=== PATIENT | male | born 1985 | race Caucasian/White ===

== ENCOUNTER 2019-01-15 01:19 | Emergency (ER) | payer BC ==
[~2019-01-15] VITALS: Ht 180.3 cm; Wt 129.3 kg
--- NOTE | 2019-01-15 01:30 | ED.ADGEN ---
Past History Past Medical History: Anxiety Drug Use: Marijuana Adult General Chief Complaint Chief Complaint ".. My entire Lt side of body is numb... My head all the way down.. ".. " It started at about 9 pm.. I did smoke some marijuana at 8:15.. It felt like I was having a panic attack... I am under stress.. going through a divorce..."..".. I got three kids.. 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 who presents with above hx and complaints of entire Lt side weakness and numbness. Patient states his vision on the left side is cloudy. Pt. States everything on Lt side head and body is numb and weak since 2100 hrs after smoking some marijuana. Patient was however able to walk to get into his friend's car. In October to walk from the car to the emergency room. Patient denies previous history of TIA or strokes. Does have a history of anxiety disorder. Patient states he is under extreme amount of stress because he is going through a divorce. Patient denies any illicit drug use other than marijuana. Patient does smoke. No recent travel or specific ill contacts. No history of trauma. No history of HIV or immunosuppression. Patient is right- hand dominant. Review of Systems Review of Systems Constitutional: Denies fever or chills [] Eyes: Denies change in visual acuity, redness, or eye pain [] Decreased vision Lt eye HENT: Denies nasal congestion or sore throat [] Respiratory: Denies cough or shortness of breath [] Cardiovascular: No additional information not addressed in HPI [] GI: Denies abdominal pain, nausea, vomiting, bloody stools or diarrhea [] : Denies dysuria or hematuria [] Musculoskeletal: Denies back pain or joint pain [] Integument: Denies rash or skin lesions [] Neurologic: Denies headache, focal weakness or sensory changes []Complaints of complete Lt side weakness and numbness. Endocrine: Denies polyuria or polydipsia [] All other systems were reviewed and found to be within normal limits, except as documented in this note. Family History Family History Noncontributory Current Medications Current Medications Current Medications Medications (Trade) Dose Ordered Sig/Haley Start Time Stop Time Status Last Admin Dose Admin Aspirin (Dane Aspirin) 325 mg STK-MED ONCE 01/15/19 02:50 01/15/19 04:24 DC Lactated Ringer's 1,000 ml @ 1,000 mls/hr 1X ONCE 01/15/19 03:30 01/15/19 04:24 DC Allergies Allergies Allergies Coded Allergies Type Severity Reaction Last Updated Verified oxycodone Allergy Unknown Itching 01/15/19 Yes Physical Exam Physical Exam Constitutional: , in moderately acute emotional distress, non-toxic appearance. [] HENT: Normocephalic, atraumatic, bilateral external ears normal, oropharynx moist, no oral exudates, nose normal. []Ear studs. Eyes: PERRLA, EOMI, conjunctiva mild injection, consensual light reflex, no discharge. [] Glasses. Neck: Normal range of motion, no tenderness, supple, no stridor. [] Cardiovascular:Heart rate regular rhythm, no murmur [] Lungs & Thorax: Bilateral breath sounds equal at apexes and a few scattered wheezes on auscultation [] Abdomen: Bowel sounds normal, soft, no tenderness, no masses, no pulsatile masses. [] Obese. Skin: Warm, dry, no erythema, no rash. [] Tattoo's. Back: No tenderness, no CVA tenderness. [] Extremities: No tenderness, no cyanosis, no clubbing, ROM intact, no edema. [] Neurologic: Alert and oriented X 3, complains of weakness and numbness on his entire left side of body , DTRs +2 patella and brachial. Distal vib. 128 intact. Rt. hand dominate. Psychologic: Affect anxious, judgement normal, mood normal. [] Current Patient Data Lab Results Laboratory Tests Test 01/15/19 01:25 01/15/19 01:50 Glucose (Fingerstick) 134 mg/dL (70-99) H White Blood Count 11.2 x10^3/uL (4.0-11.0) H Red Blood Count 4.99 x10^6/uL (4.30-5.70) Hemoglobin 16.0 g/dL (13.0-17.5) Hematocrit 47.3 % (39.0-53.0) Mean Corpuscular Volume 95 fL (79-100) Mean Corpuscular Hemoglobin 32 pg (25-35) Mean Corpuscular Hemoglobin Concent 34 g/dL (31-37) Red Cell Distribution Width 13.4 % (11.5-14.5) Platelet Count 325 x10^3/uL (140-400) Neutrophils (%) (Auto) 74 % (31-73) H Lymphocytes (%) (Auto) 19 % (24-48) L Monocytes (%) (Auto) 5 % (0-9) Eosinophils (%) (Auto) 1 % (0-3) Basophils (%) (Auto) 0 % (0-3) Neutrophils # (Auto) 8.3 x10^3uL (1.8-7.7) H Lymphocytes # (Auto) 2.2 x10^3/uL (1.0-4.8) Monocytes # (Auto) 0.6 x10^3/uL (0.0-1.1) Eosinophils # (Auto) 0.1 x10^3/uL (0.0-0.7) Basophils # (Auto) 0.0 x10^3/uL (0.0-0.2) Erythrocyte Sedimentation Rate 2 (0-15) Prothrombin Time 9.9 SEC (9.4-11.4) Prothrombin Time INR 1.0 (0.9-1.1) PTT 29 SEC (23-33) Sodium Level 142 mmol/L (136-145) Potassium Level 3.8 mmol/L (3.5-5.1) Chloride Level 104 mmol/L (98-107) Carbon Dioxide Level 30 mmol/L (21-32) Anion Gap 8 (6-14) Blood Urea Nitrogen 14 mg/dL (8-26) Creatinine 1.4 mg/dL (0.7-1.3) H Estimated GFR (Cockcroft-Gault) 58.4 Glucose Level 141 mg/dL (70-99) H Calcium Level 9.5 mg/dL (8.5-10.1) Total Bilirubin 0.7 mg/dL (0.2-1.0) Direct Bilirubin 0.1 mg/dL (0.0-0.2) Aspartate Amino Transferase (AST) 32 U/L (15-37) Alanine Aminotransferase (ALT) 51 U/L (16-63) Alkaline Phosphatase 71 U/L (46-116) Total Protein 7.0 g/dL (6.4-8.2) Albumin 4.0 g/dL (3.4-5.0) EKG EKG My interpretation EKG shows sinus rhythm at 85 bpm. No findings acute STEMI with contralateral changes.[] Radiology/Procedures Radiology/Procedures [] IMAGING REPORT Signed PATIENT: CAMMY CRANE ACCOUNT: [id number] : 1985 LOCATION: ER AGE: 33 SEX: M EXAM STATUS: PRE ER ORD. PHYSICIAN: PRO MAHONEY MD REASON: LEFT SIDED FACIAL NUMBNESS/WEAKNESS PROCEDURE: CT CODE STROKE HEAD WO PQRS Compliance Statement: One or more of the following individualized dose reduction techniques were utilized for this examination: 1. Automated exposure control 2. Adjustment of the mA and/or kV according to patient size 3. Use of iterative reconstruction technique CT head without contrast 01/15/2019 1:34 AM INDICATION: Code stroke COMPARISON: None available TECHNIQUE: Multiple axial CT images of the head were obtained from skull base through the vertex without intravenous contrast. FINDINGS: Head: Ventricles, sulci and basal cisterns are within normal limits. There is no hydrocephalus. Oconnor-white matter differentiation is normal. There is no acute intracranial hemorrhage. There is no mass, mass effect or midline shift. Posterior fossa is normal in appearance. Mild crowding of the foramen magnum by the cerebellar tonsils. Visualized portions of the orbits are normal. Paranasal sinuses are well aerated. Mastoid air cells are well aerated. Scalp and calvaria are normal. IMPRESSION: No acute intracranial hemorrhage. Mild crowding of the foramen magnum by the cerebellar tonsils. Critical result: Findings discussed with PRO MAHONEY at 01/15/2019 1:48 AM. FOR INTERNAL CODING PURPOSES RESULT CODE: (C) Electronically signed by: Timoteo Yang MD (01/15/2019 1:50 AM) [facility] DICTATED AND SIGNED BY: TIMOTEO YANG MD DATE: 01/15/19 0150 CC: PRO MAHONEY MD; MARIE MONREAL ~ Course & Med Decision Making Course & Med Decision Making Pertinent Labs and Imaging studies reviewed. (See chart for details) Atypical TIA or CVA presentation. Discussed with pt. risks and benefit of TPA. Shortly thereafter reported clearing of all his symptoms of Lt. side numbness and weakness. Pt. declined TPA at this time. Pt. unable to urinate during ED visit. Pt. at 3:30 demanding discharge. Advised he had to be at work at 0800 hrs . Review risks of discharge. Pt. exhibits UC[employer] capacity. Advised he must followup. Take a daily ASA. Return at any time if he wished to complete his work up. [] Final Impression Final Impression 1. Lt side numbness-Head to Toe[] 2. Elevated Glucose 3. Anxiety and Stress Dragon Disclaimer Dragon Disclaimer This electronic medical record was generated, in whole or in part, using a voice recognition dictation system. Discharge Summary Visit Information Final Diagnosis Problems Medical Problems: (1) TIA (transient ischemic attack) Status: Acute Brief Hospital Course Allergies Allergies Coded Allergies Type Severity Reaction Last Updated Verified oxycodone Allergy Unknown Itching 01/15/19 Yes Lab Results Laboratory Tests Test 01/15/19 01:25 01/15/19 01:50 Glucose (Fingerstick) 134 mg/dL (70-99) White Blood Count 11.2 x10^3/uL (4.0-11.0) Red Blood Count 4.99 x10^6/uL (4.30-5.70) Hemoglobin 16.0 g/dL (13.0-17.5) Hematocrit 47.3 % (39.0-53.0) Mean Corpuscular Volume 95 fL (79-100) Mean Corpuscular Hemoglobin 32 pg (25-35) Mean Corpuscular Hemoglobin Concent 34 g/dL (31-37) Red Cell Distribution Width 13.4 % (11.5-14.5) Platelet Count 325 x10^3/uL (140-400) Neutrophils (%) (Auto) 74 % (31-73) Lymphocytes (%) (Auto) 19 % (24-48) Monocytes (%) (Auto) 5 % (0-9) Eosinophils (%) (Auto) 1 % (0-3) Basophils (%) (Auto) 0 % (0-3) Neutrophils # (Auto) 8.3 x10^3uL (1.8-7.7) Lymphocytes # (Auto) 2.2 x10^3/uL (1.0-4.8) Monocytes # (Auto) 0.6 x10^3/uL (0.0-1.1) Eosinophils # (Auto) 0.1 x10^3/uL (0.0-0.7) Basophils # (Auto) 0.0 x10^3/uL (0.0-0.2) Erythrocyte Sedimentation Rate 2 (0-15) Prothrombin Time 9.9 SEC (9.4-11.4) Prothromb Time International Ratio 1.0 (0.9-1.1) Activated Partial Thromboplast Time 29 SEC (23-33) Sodium Level 142 mmol/L (136-145) Potassium Level 3.8 mmol/L (3.5-5.1) Chloride Level 104 mmol/L (98-107) Carbon Dioxide Level 30 mmol/L (21-32) Anion Gap 8 (6-14) Blood Urea Nitrogen 14 mg/dL (8-26) Creatinine 1.4 mg/dL (0.7-1.3) Estimated GFR (Cockcroft-Gault) 58.4 Glucose Level 141 mg/dL (70-99) Calcium Level 9.5 mg/dL (8.5-10.1) Total Bilirubin 0.7 mg/dL (0.2-1.0) Direct Bilirubin 0.1 mg/dL (0.0-0.2) Aspartate Amino Transf (AST/SGOT) 32 U/L (15-37) Alanine Aminotransferase (ALT/SGPT) 51 U/L (16-63) Alkaline Phosphatase 71 U/L (46-116) Total Protein 7.0 g/dL (6.4-8.2) Albumin 4.0 g/dL (3.4-5.0) Brief Hospital Course Mr. Crane is a 33 old male who presented with complete Lt side weakness and numbness. Resolved during ED stay. Declined admission. Discharge Information Condition at Discharge: Improved, Stable Disposition/Orders: D/C to Home Dischare Medications Current Medications Lactated Ringer's 1,000 ml @ 0 mls/hr 1X ONCE IV Last administered on 01/15/19at 02:55; Admin Dose 1,000 MLS/HR; Start 01/15/19 at 01:45; Stop 01/15/19 at 04:00; Status DC Lactated Ringer's 1,000 ml @ 0 mls/hr 1X ONCE IV ; Start 01/15/19 at 04:00; Stop 01/15/19 at 04:01; Status DC Aspirin ([employer] Aspirin) 325 mg 1X ONCE PO Last administered on 01/15/19at 02:56; Admin Dose 325 MG; Start 01/15/19 at 02:15; Stop 01/15/19 at 04:24; Status DC Lactated Ringer's 1,000 ml @ 1,000 mls/hr 1X ONCE IV ; Start 01/15/19 at 03:30; Stop 01/15/19 at 04:24; Status DC Aspirin (Dane Aspirin) 325 mg STK-MED ONCE .ROUTE ; Start 01/15/19 at 02:50; Stop 01/15/19 at 04:24; Status DC Dragon Disclaimer This chart was dictated in whole or in part using Voice Recognition software in a busy, high-work load, and often noisy Emergency Department environment. It may contain unintended and wholly unrecognized errors or omissions. PRO MAHONEY MD Jan 15, 2019 01:29
[2019-01-15] MEDS ORDERED: IV RINGERS SOLUTION,LACTATED 1,000 ML IV ONE ×3 (01:45→04:00)
--- NOTE | 2019-01-15 01:53 | RAD ---
RS Compliance Statement: One or more of the following individualized dose reduction techniques were utilized for this examination: 1. Automated exposure control 2. Adjustment of the mA and/or kV according to patient size 3. Use of iterative reconstruction technique CT head without contrast 01/15/2019 1:34 AM INDICATION: Code stroke COMPARISON: None available TECHNIQUE: Multiple axial CT images of the head were obtained from skull base through the vertex without intravenous contrast. FINDINGS: Head: Ventricles, sulci and basal cisterns are within normal limits. There is no hydrocephalus. Oconnor-white matter differentiation is normal. There is no acute intracranial hemorrhage. There is no mass, mass effect or midline shift. Posterior fossa is normal in appearance. Mild crowding of the foramen magnum by the cerebellar tonsils. Visualized portions of the orbits are normal. Paranasal sinuses are well aerated. Mastoid air cells are well aerated. Scalp and calvaria are normal. IMPRESSION: No acute intracranial hemorrhage. Mild crowding of the foramen magnum by the cerebellar tonsils. Critical result: Findings discussed with PRO MAHONEY at 01/15/2019 1:48 AM. FOR INTERNAL CODING PURPOSES RESULT CODE: (C) Electronically signed by: Zaira Baldwin MD (01/15/2019 1:50 AM) [facility]
[2019-01-15] MEDS ORDERED: ASPIRIN 325 MG TABLET PO ONE (02:15)
[2019-01-15 02:37] LABS: BASO % 0 % (0-3); EOS # 0.1 x10^3/uL (0.0-0.7); EOS % 1 % (0-3); HEMATOCRIT 47.3 % (39.0-53.0); LYMPH # 2.2 x10^3/uL (1.0-4.8); LYMPH % 19 % (24-48); MEAN CORPUSCULAR HEMOGLOBIN 32 pg (25-35); MEAN CORPUSCULAR HGB CONC 34 g/dL (31-37); MEAN CORPUSCULAR VOLUME 95 fL (79-100); MONO # 0.6 x10^3/uL (0.0-1.1); MONO % 5 % (0-9); NEUT # 8.3 x10^3uL (1.8-7.7); NEUT % 74 % (31-73); PLATELET COUNT 325 x10^3/uL (140-400); RED BLOOD COUNT 4.99 x10^6/uL (4.30-5.70); RED CELL DISTRIBUTION WIDTH 13.4 % (11.5-14.5); WHITE BLOOD COUNT 11.2 x10^3/uL (4.0-11.0)
[2019-01-15 02:43] LABS: CALCIUM 9.5 mg/dL (8.5-10.1); CREATININE 1.4 mg/dL (0.7-1.3); GFR 58.4; POTASSIUM 3.8 mmol/L (3.5-5.1)
[2019-01-15 02:50] LABS: DIRECT BILIRUBIN 0.1 mg/dL (0.0-0.2); TOTAL BILIRUBIN 0.7 mg/dL (0.2-1.0)
[2019-01-15] MEDS ORDERED: ASPIRIN 325 MG TABLET ONE (02:50)
[2019-01-15 03:37] VITALS: BP 158/96
[2019-01-15 03:37] LABS: SEDIMENTATION RATE 2 (0-15)
--- NOTE | 2019-01-18 07:44 | EKG ---
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
== END 2019-01-15 03:53 | disposition home or self-care (01) ==
LOC: ER 01:19
DX: G45.9 Transient cerebral ischemic attack, unspecified (principal); R73.9 Hyperglycemia, unspecified; F41.9 Anxiety disorder, unspecified; F43.9 Reaction to severe stress, unspecified; F12.10 Cannabis abuse, uncomplicated; Z88.5 Allergy status to narcotic agent
CPT/HCPCS: 36415; 70450; 80048; 80076; 82947; 85025; 85610; 85651; 85730; 93005; 99285; J7120